=== PATIENT | male | born 1975 | race Caucasian/White ===

== ENCOUNTER 2024-10-02 03:41 | Day surgery (SDC) | payer OTHER ==
[~2024-10-02] VITALS: Ht 170.2 cm; Wt 77.1 kg
[2024-10-02] MEDS ORDERED: CEFAZOLIN 1 G in IV DEXTROSE 5% 50 ML IV ONE (04:45)
== END 2024-10-02 05:49 | disposition home or self-care (01) ==
LOC: DS 03:41
PROC: 0DTJ4ZZ Resection of Appendix, Percutaneous Endoscopic Approach (ICD-10-PCS; principal; 2024-10-02)
DX: K35.891 Other acute appendicitis without perforation, with gangrene (principal)
CPT/HCPCS: 36415; 85651; J0690